=== PATIENT | male | born 1995 | race Caucasian/White ===

== ENCOUNTER 2018-05-04 12:24 | Emergency (ER) | payer SELFPAY ==
[2018-05-04] MEDS ORDERED: Lidocaine 1% w/Epinephrine 1:100K 20 ML VIAL ONE (13:38)
== END 2018-05-04 14:13 | disposition home or self-care (01) ==
LOC: ERS 12:24
DX: S01.112A Laceration without foreign body of left eyelid and periocular area, initial encounter (principal); W22.8XXA Striking against or struck by other objects, initial encounter
CPT/HCPCS: 12013; J2001

== ENCOUNTER 2018-05-10 15:45 | Emergency (ER) | payer SELFPAY | END 2018-05-10 16:23 | disposition home or self-care (01) | LOC: ERS 15:45 | DX: S01.112D Laceration without foreign body of left eyelid and periocular area, subsequent encounter (principal) ==